=== PATIENT | male | born 1950 | race Caucasian/White ===

== ENCOUNTER 2016-12-01 07:57 | Day surgery (SDC) | payer OTHER ==
[~2016-12-01] VITALS: Ht 119.4 cm; Wt 76.0 kg
[~2016-12-01 07:57] MED LIST: ASPERCREME1 EACH TP; ASPIRIN81 M2 PO; COLCHICINE0.6 M1 PO; KAYEXALATE15 GM/60 M PO; LOPRESSOR25 MG PO; NEURONTIN300 MG PO; PRILOSEC20 MG PO; RENVELA800 MG PO
[2016-12-01] MEDS ORDERED: STOOL SOFT50 MG/5 ML PO (08:40)
[2016-12-01] MEDS ORDERED: AMLODIPINE BESYL5 MG PO (08:41)
[2016-12-01] MEDS ORDERED: RENAL VITAMIN0.8 MG PO (08:42)
[2016-12-01] MEDS ORDERED: OXYCODONE HCL10 MG PO (08:43)
[2016-12-01] MEDS ORDERED: ZOFRAN4 MG PO (08:44)
[2016-12-01 08:50] VITALS: BP 175/72
[2016-12-01 08:50] LABS: HEMATOCRIT 32.7 % (38.0-50.0); MCH 30.4 PG (29.0-34.0); MCHC 32.4 G/DL (30.0-36.0); MCV 93.7 FL (86-99); MEAN PLAT.VOLUME 8.9 uM^3 (9.0-12.4); PLATELET COUNT 242 K/uL (156-360); RBC DIS.WIDTH-CV 15.3 % (11.8-14.6); RBC DIS.WIDTH-SD 52.6 % (39-53); RED BLOOD COUNT 3.49 M/uL (4.00-5.50); WHITE BLOOD COUNT 11.5 K/uL (4.1-10.2)
[2016-12-01 09:00] LABS: CHLORIDE 97 mEq/L (99-109); POTASSIUM 4.3 mEq/L (3.7-5.4); SODIUM 134 mEq/L (136-147)
[2016-12-01 09:02] LABS: GLUCOSE 82 mg/dL (70-99)
[2016-12-01 09:03] LABS: ANION GAP 13 MEQ/L (2-14)
[2016-12-01 09:06] LABS: GFR ESTIMATE (CALCULATED) 15 mL/min/
[2016-12-01 09:07] LABS: UREA NITROGEN (BUN) 22 mg/dL (9-23)
[2016-12-01 10:09] LABS: METH RESISTANT S AUREUS PCR POSITIVE (NEGATIVE)
[2016-12-01 10:14] LABS: PROBE CHECK PASS
[2016-12-01 11:36] LABS: POINT-OF-CARE METER ID UU13113675
[2016-12-01 12:40] VITALS: BP 177/55
[2016-12-01 13:25] VITALS: BP 133/62
== END 2016-12-01 13:45 | disposition home or self-care (01) ==
LOC: SDC 07:57
PROVIDERS: Surgery
PROC: 03170KD Bypass Right Brachial Artery to Upper Arm Vein with Nonautologous Tissue Substitute, Open Approach (ICD-10-PCS; principal; 2016-12-01)
DX: I12.0 Hypertensive chronic kidney disease with stage 5 chronic kidney disease or end stage renal disease (principal); E11.22 Type 2 diabetes mellitus with diabetic chronic kidney disease; N18.6 End stage renal disease; Z99.2 Dependence on renal dialysis; I69.891 Dysphagia following other cerebrovascular disease
CPT/HCPCS: 80048; 82948; 85027; 87641; C1768; J0690; J1170; J1644; J2250; J2720; J3010